=== PATIENT | female | born 1955 | race Caucasian/White ===

== ENCOUNTER 2018-09-20 06:52 | Day surgery (SDC) | payer MEDICARE, OTHER ==
[~2018-09-20 06:52] MED LIST: CEFAZOLIN 1G VIAL IVP ONE; CEFAZOLIN 2 Gram 2 GM/50 ML BAG IVPB ONE; WATER STERILE FOR INJECTION 20 ML VIAL MC ONE
[2018-09-20] MEDS ORDERED: MIDAZOLAM HCL 2MG/2ML VIAL IV ONE (06:53)
[2018-09-20] MEDS ORDERED: SEVOFLURANE 250 ML INH ONE (06:53)
[2018-09-20] MEDS ORDERED: FENTANYL PF 100MCG/2ML VIAL IV ONE (06:53)
[2018-09-20] MEDS ORDERED: LIDOCAINE 2% MDV (20MG/ML) 20ML VIAL IV ONE (06:53)
[2018-09-20] MEDS ORDERED: EPHEDRINE SULFATE 50 MG/ML ML IV ONE (06:53)
[2018-09-20] MEDS ORDERED: ROPIVACAINE HCL (NAROPIN) /PF 5MG/ML 20ML VIAL IV ONE (06:53)
[2018-09-20] MEDS ORDERED: PROPOFOL 10 MG/ML VIAL IV ONE (06:53)
[2018-09-20] MEDS ORDERED: DEXAMETHASONE 4 MG/ML 1ML VIAL IVP ONE (06:53)
[2018-09-20] MEDS ORDERED: ONDANSETRON HCL IV 4 MG/2 ML VIAL IVP ONE ×2 (06:53→10:25)
[2018-09-20] MEDS ORDERED: RINGERS SOLUTION,LACTATED 1,000 ML IV ONE ×2 (07:30→09:28)
--- NOTE | 2018-09-22 08:40 | Operative Note ---
DATE OF SURGERY: 09/20/2018 SURGEON: Kevin Pillai DO PREOPERATIVE DIAGNOSIS: Osteoarthritis of the carpometacarpal joint of the left thumb. POSTOPERATIVE DIAGNOSIS: Osteoarthritis of the carpometacarpal joint of the left thumb. OPERATION: Hemiarthroplasty of the carpometacarpal joint of the left thumb using NuGrip Rawlins prosthesis. DESCRIPTION OF PROCEDURE: This 62-year-old female was taken to the operating room and placed in the supine position on the operating room table. General anesthetic was administered. The left upper extremity was elevated. It was prepped with Hibiclens and draped in the usual sterile fashion. It was exsanguinated and the tourniquet inflated to 250 mmHg. An incision was made overlying the dorsal surface of the 1st metacarpal from approximately 1 cm distal to the tip of the radial styloid to about 1 cm from the MCP joint. The dissection was carried down through the skin and subcutaneous tissue. Branches of the radial nerve were identified. The radial artery protected during the operative procedure. The extensor brevis was retracted in a palmar direction and the abductor in the palmar direction, extensor in the radial direction gave us excellent exposure to the dorsal surface of the bone and the CMC joint. We sharply dissected down through the capsule to expose the joint and removed synovitis and debris from the inside of the joint. The joint was sized to a small, which seemed to be the appropriate size. A greg was made on the metacarpal for the area of resection. We subsequently drilled a hole to find the appropriate position in the canal. The image intensifier was used to confirm position and alignment. We then used the awl to slightly widen the hole. After we resected capsule and periosteum from around both the radial and ulnar aspects of the proximal metacarpal, this gave us excellent exposure. We then were able to sublux the bone. A greg was made in the appropriate position on the trapezium. Subsequently, we drilled the K wire into the bone and then used this to guide the reamer to ream the socket. Again, the image intensifier was used to confirm position and alignment. Guidewire was removed. Polishing dianna was used. The guide was then placed in the metacarpal and the appropriate cut was made on the metacarpal to give us excellent exposure of the joint. The trial components were then inserted and the thumb taken through range of motion. Excellent fit of the components was identified. The wound was copiously irrigated with lactated Ringer's solution, and hemostasis obtained with the electrocautery. A size 20 small NuGrip Rawlins component was impacted into place, and the image intensifier was again used to obtain images. The capsule and periosteum were then reapproximated with 0 Vicryl. The subcutaneous tissue was closed with 3-0 Vicryl and the skin was closed with 4-0 nylon suture. Sterile dressings were applied with thumb spica splint, and the patient was taken to the recovery room in satisfactory condition. GROSS PATHOLOGY: This patient demonstrated severe full-thickness articular cartilage loss at the carpometacarpal joint. No complications during the procedure. CC: DO CRISTELA Plascencia
== END 2018-09-20 11:03 | disposition home or self-care (01) ==
LOC: SUR 06:52
PROVIDERS: ATTEND Orthopaedic Surgery
DX: M19.042 Primary osteoarthritis, left hand (principal); I10 Essential (primary) hypertension; E11.9 Type 2 diabetes mellitus without complications; E78.00 Pure hypercholesterolemia, unspecified
CPT/HCPCS: 25447; 01830; 64450; 36416; 82948; 76942; J2405; J3010; J0690; J2795; J7120